=== PATIENT | female | born 1975 | race African-American/Black ===

== ENCOUNTER 2021-06-26 12:25 | Emergency (ER) | payer OTHER ==
[~2021-06-26] VITALS: Ht 170.2 cm; Wt 82.0 kg
[2021-06-26] MEDS ORDERED: IV NORMAL SALINE 1,000ML 1,000 ML IV SCH (12:45)
[2021-06-26] MEDS ORDERED: IV NORMAL SALINE 500ML 500 ML IV PRN (12:45)
--- NOTE | 2021-06-26 13:00 | PHYS DOC ---
Past History Past Medical History: Asthma Past Surgical History: No Surgical History Alcohol Use: None Drug Use: None General Adult EDM: Chief Complaint: SHORTNESS OF BREATH HPI: HPI: Patient is a 46-year-old female who arrives ambulatory to the emergency department with multiple medical complaints. Patient reports since yesterday afternoon she has been dealing with the effects of a right-sided headache. Patient also states that she has had a productive cough during this time as well as right-sided chest pain. Patient also states that she is short of breath and feels that she is not able to catch her breath. Patient states she has a history of asthma however she states that is very well controlled. She denies any sick contacts. Additionally she denies any substernal chest pain, abdominal symptoms or any neurological symptoms. Additionally she is unaware of any fevers or known sick contacts. Furthermore she states that she is vaccinated against coronavirus. She is awake, alert and nontoxic-appearing. Review of Systems: Review of Systems: Constitutional: Denies fever or chills Eyes: Denies change in visual acuity HENT: Denies nasal congestion or sore throat Respiratory: Reports cough and shortness of breath Cardiovascular: Reports right-sided chest pain. Denies edema GI: Denies abdominal pain, nausea, vomiting, bloody stools or diarrhea : Denies dysuria Musculoskeletal: Denies back pain or joint pain Integument: Denies rash Neurologic: Reports headache, focal weakness or sensory changes Endocrine: Denies polyuria or polydipsia Lymphatic: Denies swollen glands Psychiatric: Denies depression or anxiety Current Medications: Current Meds: Current Medications Medications (Trade) Dose Ordered Sig/Sonny Start Time Stop Time Status Last Admin Dose Admin Levofloxacin/ Dextrose 150 ml @ 100 mls/hr Q24H 06/26/21 12:45 07/01/21 12:44 UNV Sodium Chloride 500 ml @ 1,000 mls/hr PRN Q30MIN PRN 06/26/21 12:45 UNV Allergies: Allergies: Allergies Coded Allergies Type Severity Reaction Last Updated Verified Penicillins Allergy Severe Hives 04/09/15 Yes aspirin Allergy Severe Hives 04/09/15 Yes iodine Allergy Severe Hives 04/09/15 Yes Physical Exam: PE: Constitutional: Uncomfortable appearing. Well developed, well nourished, non- toxic appearance. [] HENT: Normocephalic, atraumatic, bilateral external ears normal, oropharynx moist, no oral exudates, nose normal. [] Eyes: PERRLA, EOMI, conjunctiva normal, no discharge. [] Neck: Normal range of motion, no tenderness, supple, no stridor. [] Cardiovascular: Tachycardia. no murmur [] Lungs & Thorax: Bilateral breath sounds clear to auscultation [] Abdomen: Bowel sounds normal, soft, no tenderness, no masses, no pulsatile masses. [] Skin: Warm, dry, no erythema, no rash. [] Back: No tenderness, no CVA tenderness. [] Extremities: No tenderness, no cyanosis, no clubbing, ROM intact, no edema. [] Neurologic: Alert and oriented X 3, normal motor function, normal sensory function, no focal deficits noted. [] Psychologic: Affect normal, judgement normal, mood normal. [] Current Patient Data: Vital Signs: Vital Signs Date Time Temp Pulse Resp B/P (MAP) Pulse Ox O2 Delivery O2 Flow Rate FiO2 06/26/21 12:37 100.0 118 16 102/68 (79) 98 Room Air EKG: EKG: EKG was obtained at 1336 hrs. and reveals a sinus tachycardia with ventricular rate of 107 bpm. There are PACs present. Despite this, intervals are normal and there are no acute ST/T wave changes to denote ischemia. There is no STEMI present. Radiology/Procedures: Radiology/Procedures: [][address] [address] IMAGING REPORT Signed PATIENT: AGUSTO LOPEZ ACCOUNT: [id number] : 1975 LOCATION: ER AGE: 46 SEX: F EXAM STATUS: REG ER ORD. PHYSICIAN: MARCI LAND DO REASON: Headache PROCEDURE: CT HEAD WO CONTRAST EXAMINATION: CT HEAD/BRAIN WO CLINICAL HISTORY: Headache. TECHNIQUE: Serial axial images without IV contrast were obtained from the vertex to the foramen magnum. CT Dose Reduction Employed: One or more of the following individualized dose red uction techniques were utilized for this examination: 1. Automated exposure control 2. Adjustment of the mA and/or kV according to patient size 3. Use of iterative reconstruction technique. COMPARISON: None FINDINGS: Acute Change: No evidence of an acute infarct or other acute parenchymal process. Hemorrhage: No evidence of acute intracranial hemorrhage. Mass Lesion/Mass Effect: No evidence of intracranial mass or extraaxial fluid collection. No significant mass effect. Parenchyma: Parenchyma within normal limits for age. Ventricles: Ventricles within normal limits for age. Paranasal Sinuses and Skull Base: Moderate secretions in the ethmoid and sphenoid sinuses. Visualized skull base and soft tissues unremarkable. IMPRESSION: No evidence of acute intracranial abnormality. Electronically signed by: Kurt Dempsey DO (06/26/2021 1:33 PM) [facility] DICTATED AND SIGNED BY: KURT DEMPSEY DO DATE: 06/26/21 1321 CC: MARCI LAND DO; NON,STAFF ~ Heart Score: C/O Chest Pain: Yes HEART Score for Chest Pain: HEART Score for Chest Pain Response (Comments) Value History Slighlty/Non-Suspicious 0 ECG Normal 0 Age < 45 0 Risk Factors No Risk Factors 0 Troponin < Normal Limit 0 Total 0 Risk Factors: Risk Factors: DM, Current or recent (<one month) smoker, HTN, HLP, family history of CAD, obesity. Risk Scores: Score 0 - 3: 2.5% MACE over next 6 weeks - Discharge Home Score 4 - 6: 20.3% MACE over next 6 weeks - Admit for Clinical Observation Score 7 - 10: 72.7% MACE over next 6 weeks - Early Invasive Strategies Course & Med Decision Making: Course & Med Decision Making Pertinent Labs and Imaging studies reviewed. Patient was taken back to room for the emergency department upon arrival where IV access was obtained. In addition to this blood work, EKG as well as imaging were performed. The results relative to the patient's blood work are negative. Additionally the EKG did show sinus tachycardia without ischemic change. Imaging did not reveal any acute pathological or infectious process. At this time the patient reports she is feeling much better. I do suspect she likely has a mixture of an upper respiratory infection which may be exacerbating her asthma. She does states she is without her rescue inhaler. Given that her lactic acid is within normal limits, I do feel comfortable letting her go home. Should the patient develop any new shortness of air, chest pain or the worst headache of her life, I advised that she return to the emergency department. The patient understands and has agreed to do so. She is nontoxic-appearing and neurologically intact. She is stable for discharge. [] Tona Disclaimer: Tona Disclaimer: This electronic medical record was generated, in whole or in part, using a voice recognition dictation system. Departure Departure: Impression: Primary Impression: URI (upper respiratory infection) Additional Impressions: History of asthma Cephalalgia Disposition: HOME / SELF CARE / HOMELESS Condition: STABLE Referrals: NON,STAFF (PCP) Patient Instructions: Asthma Attacks, Prevention, General Headache Without Cause, General Headache Without Cause, [id number], Upper Respiratory Infection, Adult Additional Instructions: Please follow-up with your primary care physician in the next 3 to 5 days. Return to the emergency department if your symptoms worsen. Scripts Butalb/Acetaminophen/Caffeine ([id number]) 1 Each Capsule 1 EACH PO Q6HRS for headache for 3 Days, #12 CAP Prov: MARCI LAND DO 06/26/21 Prednisone (PREDNISONE) 50 Mg Tablet 1 TAB PO DAILY for inflammation for 5 Days, #5 TAB You received this medication in the emergency room today. You will starting your next dose tomorrow. Prov: MARCI LAND DO 06/26/21 Albuterol Sulfate (PROAIR HFA INHALER) 8.5 Gm Hfa.aer.ad 2 PUFF IH PRN Q4-6HRS PRN for wheezing for 21 Days, #1 INHALER 0 Refills Prov: MARCI LAND DO 06/26/21 MARCI LAND DO June 26, 2021 13:00
[2021-06-26] MEDS ORDERED: ACETAMINOPHEN 500 MG TABLET PO ONE (13:15)
[2021-06-26 13:29] LABS: BASO % 0 % (0-3); EOS % 1 % (0-3); HEMATOCRIT 33.8 % (36.0-47.0); HEMOGLOBIN 11.3 g/dL (12.0-15.5); LYMPH # 0.5 x10^3/uL (1.0-4.8); LYMPH % 7 % (24-48); MEAN CORPUSCULAR HEMOGLOBIN 28 pg (25-35); MEAN CORPUSCULAR HGB CONC 34 g/dL (31-37); MEAN CORPUSCULAR VOLUME 84 fL (79-100); MONO # 0.5 x10^3/uL (0.0-1.1); MONO % 7 % (0-9); NEUT # 6.4 x10^3uL (1.8-7.7); NEUT % 85 % (31-73); PLATELET COUNT 202 x10^3/uL (140-400); RED BLOOD COUNT 4.04 x10^6/uL (3.50-5.40); RED CELL DISTRIBUTION WIDTH 16.4 % (11.5-14.5); WHITE BLOOD COUNT 7.5 x10^3/uL (4.0-11.0)
--- NOTE | 2021-06-26 13:31 | RAD ---
EXAMINATION: XR CHEST 1V CLINICAL HISTORY: Cough, shortness of air. EXAM DATE/TIME: 06/26/2021 1:26 PM COMPARISON: None FINDINGS: Lines, Tubes, and Devices: None. Cardiomediastinal Silhouette: Within normal limits. Lungs and Pleura: No evidence of focal airspace consolidation or pleural effusion. Pulmonary vasculat ure unremarkable. Bones and Soft Tissues: No acute osseous abnormality. IMPRESSION: No evidence of acute cardiopulmonary abnormality. Electronically signed by: Kurt Freeman DO (06/26/2021 1:28 PM) [facility]
--- NOTE | 2021-06-26 13:36 | RAD ---
EXAMINATION: CT HEAD/BRAIN WO CLINICAL HISTORY: Headache. TECHNIQUE: Serial axial images without IV contrast were obtained from the vertex to the foramen magnu m. CT Dose Reduction Employed: One or more of the following individualized dose reduction techniques wer e utilized for this examination: 1. Automated exposure control 2. Adjustment of the mA and/or kV ac cording to patient size 3. Use of iterative reconstruction technique. COMPARISON: None FINDINGS: Acute Change: No evidence of an acute infarct or other acute parenchymal process. Hemorrhage: No evidence of acute intracranial hemorrhage. Mass Lesion/Mass Effect: No evidence of intracranial mass or extraaxial fluid collection. No signific ant mass effect. Parenchyma: Parenchyma within normal limits for age. Ventricles: Ventricles within normal limits for age. Paranasal Sinuses and Skull Base: Moderate secretions in the ethmoid and sphenoid sinuses. Visualized skull base and soft tissues unremarkable. IMPRESSION: No evidence of acute intracranial abnormality. Electronically signed by: Kurt Freeman DO (06/26/2021 1:33 PM) [facility]
[2021-06-26 14:21] LABS: DIRECT BILIRUBIN 0.1 mg/dL (0.0-0.2); TOTAL BILIRUBIN 0.3 mg/dL (0.2-1.0); TOTAL PROTEIN 7.5 g/dL (6.4-8.2)
[2021-06-26 14:49] LABS: CALCIUM 8.6 mg/dL (8.5-10.1); CREATININE 1.1 mg/dL (0.6-1.0)
[2021-06-26 15:00] VITALS: BP 118/71
[2021-06-26 15:05] LABS: INFLUENZA A PATIENT NEGATIVE (NEGATIVE); INFLUENZA B PATIENT NEGATIVE (NEGATIVE)
[2021-06-26] MEDS ORDERED: ALBU2.5V8 IH (15:15)
[2021-06-26] MEDS ORDERED: PRED50TA PO (15:15)
[2021-06-26] MEDS ORDERED: BUTA1CAP57 PO (15:17)
[2021-06-26 15:37] LABS: CLARITY,URINE CLEAR; COLOR,URINE YELLOW; GLUCOSE,URINE NEG (NEG)
[2021-06-26 15:38] LABS: NITRITE,URINE NEG (NEG); UROBILINOGEN,URINE 0.2 mg/dL (0.2 mg/dL)
[2021-06-26 15:39] LABS: BACTERIA,URINE MOD /HPF (0-FEW); SQUAMOUS EPITHELIAL CELL,UR MOD /LPF
== END 2021-06-26 15:27 | disposition home or self-care (01) ==
LOC: ER 12:25
DX: J06.9 Acute upper respiratory infection, unspecified (principal); R51.9 Headache, unspecified; J45.909 Unspecified asthma, uncomplicated; Z20.822 Contact with and (suspected) exposure to COVID-19; Z88.0 Allergy status to penicillin; Z88.6 Allergy status to analgesic agent; Z88.8 Allergy status to other drugs, medicaments and biological substances
CPT/HCPCS: 36415; 70450; 71045; 80048; 80076; 81001; 83605; 83880; 84484; 85025; 87040; 87086; 87428; 93005; 96365; 96366; 99285; J1956; J7030